=== PATIENT | female | born 1995 | race Caucasian/White ===

== ENCOUNTER 2021-01-22 10:42 | Emergency (ER) | payer OTHER, SELFPAY ==
[2021-01-22 10:55] VITALS: BP 135/88; PULSE 81; RESP 18; TEMP 36.5; O2SAT 98
--- NOTE | 2021-01-22 11:08 | ED.URI ---
HPI - URI/Sore Throat General Chief Complaint: Upper Respiratory Infection Stated Complaint: Cough/Fever/Sore Throat Time Seen by Provider: 01/22/21 10:44 Source: patient Mode of arrival: ambulatory Limitations: no limitations History of Present Illness HPI Narrative: 25-year-old female presents to [facility] with complaints of 10-day history of cough, congestion and runny nose. Patient reports that her symptoms worsen 2 days ago when she started with chills, fever, body aches and sore throat. Patient reports that she has not had a fever in the past 48 hours. Patient has received one of her 2 Covid shots. Patient does not influenza vaccine. Patient denies sick contacts. Patient denies recent travel. MD elicited complaint: cough, sore throat, rhinorrhea, nasal congestion and sinus pain Onset (ago): day(s) (10) Consistency: progressively worsening Able to tolerate fluids by mouth: Yes Associated symptoms: fever, chills and cough Related Data Home Medications Medication Instructions Recorded Confirmed escitalopram oxalate 10 mg PO DAILY 01/22/21 01/22/21 norgestrel-ethinyl estradiol 1 tablet PO DAILY 01/22/21 01/22/21 [Low-Ogestrel (28)] Allergies Allergy/AdvReac Type Severity Reaction Status Date / Time amoxicillin Allergy Unknown Other Verified 01/22/21 10:56 clarithromycin Allergy Unknown Other Verified 01/22/21 10:56 AMOXICILLIN TRIHYDRATE Allergy Unknown A CHILD Uncoded 01/29/18 13:02 POTASSIUM CLAVULANATE Allergy Unknown A CHILD Uncoded 01/29/18 13:02 Review of Systems Constitutional: Constitutional: Reports chills, Denies fatigue, Reports fever(s) and Denies weakness ENT: Denies dysphagia, Denies dizziness, Denies epistaxis and Reports sore throat Cardiovascular: Cardiovascular: Denies chest pain, Denies rapid heart rate, Denies radiating jaw, neck or arm pain and Denies slow heart rate Respiratory: Respiratory: Denies chest congestion, Reports cough and Denies dyspnea Gastrointestinal: Gastrointestinal: Denies abdominal pain, Denies diarrhea, Denies nausea and Denies vomiting Integumentary/Breasts: Skin/Breast: Denies rash PMFSH Past Medical History Medical History (Updated 01/22/21 @ 11:40 by Temitope Esparza APRN) Cholecystectomy planned Tonsillectomy planned Family History Family History Mother Diabetes mellitus Grandparent Diabetes mellitus Hypertension Family history of malignant neoplasm Family history of kidney stones Family history of malignant neoplasm of brain Family history of malignant neoplasm of breast in first degree relative Family history of malignant neoplasm of breast Social History Social History (Updated 01/22/21 @ 11:11 by Temitope Esparza APRN) Smoking status: Never smoker Alcohol intake: current Substance use: current Substance use type: marijuana Comments At time of signature, I agree with nursing past medical, surgical, social and family history. There is no relevant family history pertinent to the presenting complaint. Exam Const: General: healthy appearing and no acute distress Orientation/consciousness: patient oriented x3 HENMT: Head: normal to inspection Ears: external ears normal, TM's normal bilaterally and EAC's normal General nose exam: Normal external nose present Face and sinus: normal facial exam and sinuses nontender Mouth: Yes moist mucous membranes and Yes dry mucous membranes Throat: uvula midline Other: mild erythema noted to posterior pharynx Eyes: Pupils: Equal, round and reactive pupils present Neck: Neck: normal visual inspection Resp: Effort & Inspection: normal respiratory effort, not labored and not tachypneic Auscultation: clear to auscultation bilaterally Cardio: Rate: regular rate Rhythm: regular rhythm Skin: General skin exam: normal color Rashes: no rashes Neuro: General: patient oriented x3, moves all extremities and no meningeal signs Psy
== END 2021-01-22 11:44 | disposition home or self-care (01) ==
PROVIDERS: Emergency Provider Nurse Practitioner Family
DX: J11.1 Influenza due to unidentified influenza virus with other respiratory manifestations (principal); Z20.822 Contact with and (suspected) exposure to COVID-19
CPT/HCPCS: 87081; 87426; 87804; 87880; 99213; C9803; G0463

== ENCOUNTER 2023-06-18 17:28 | Emergency (ER) | payer OTHER, SELFPAY ==
--- NOTE | 2023-06-18 17:57 | PC.NURSE ---
called pt for triage at 2345 with no answer
== END 2023-06-18 17:57 | disposition left against medical advice (07) ==
DX: Z53.21 Procedure and treatment not carried out due to patient leaving prior to being seen by health care provider (principal)
CPT/HCPCS: 99199

== ENCOUNTER 2023-06-19 10:04 | Emergency (ER) | payer OTHER, SELFPAY ==
[2023-06-19] VITALS (13 sets, daily range): BP systolic 130–151; BP diastolic 78–82; PULSE 58–80; RESP 12–30; TEMP 37.6; O2SAT 100
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
--- NOTE | 2023-06-19 10:45 | ECG_ITS ---
SEE SCANNED COPY FOR CONFIRMED REPORT MTDD
[2023-06-19 10:58] LABS: Basophils Percent Auto 0.4 % (0.2-1.2); Eosinophils Absolute Auto 0.1 K/mm3 (0-0.3); Eosinophils Percent Auto 1.2 % (0-4.4); Hematocrit 40.4 % (37.0-47.0); Hemoglobin 13.7 g/dL (12.0-15.0); Immature Granulocyte Absolute 0.02 K/mm3 (0.00-0.031); Immature Granulocyte Percent A 0.3 % (0-0.5); Lymphocytes Absolute Auto 1.84 K/mm3 (0.9-3.2); Lymphocytes Percent Auto 26.7 % (18.3-44.2); Mean Corpuscular HGB Conc 33.9 g/dl (32-36); Mean Corpuscular Hemoglobin 29.8 pg (26-34); Mean Corpuscular Volume 87.8 fl (80-100); Mean Platelet Volume 9.1 fl (7.4-10.4); Monocytes Absolute Auto 0.4 K/mm3 (0.1-0.6); Monocytes Percent Auto 5.8 % (2.6-8.5); Neutrophils Absolute Auto 4.5 K/mm3 (1.3-6.7); Neutrophils Percent Auto 65.6 % (45.5-73.1); Platelet Count Result 272 k/mm3 (150-375); Red Cell Distribution Width 12.1 % (11.5-14.5); White Blood Count 6.9 K/mm3 (4.5-10.0)
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
[2023-06-19 11:13] LABS: Add Urine Microscopic? YES; Appearance Urine Turbid (Clear); Bacteria Urine 4+ /hpf; Bilirubin Urine Negative (Negative); Blood Urine Negative (Negative); Color Urine Dark Yellow (Yellow); Glucose Urine UA Negative (Negative); Ketones Urine Trace mg/dL (Negative); Leukocyte Esterase Ur Trace LEU/UL (Negative); Need Manual Microscopic Reviewed; Nitrate Urine Negative (Negative); Protein Urine 1+ mg/dL (Negative); Specific Grav Ur 1.036 (1.001-1.035); Squamous Epithelial Cell Urine Moderate /hpf (Few); WBC Urine 51-100 /hpf (0-3); pH Urine 5.5 (5.0-9.0)
[2023-06-19] MEDS: CYCLOBENZAPRINE HCL 5 MG TABLET PO (11:15)
[2023-06-19] MEDS: ACETAMINOPHEN 500 MG TABLET 1000 MG PO (11:15)
[2023-06-19 11:19] LABS: Troponin I < 0.012 ng/mL (0.000-0.034)
[2023-06-19 11:50] LABS: Estimated CRCL calculation 113 ml/min; Estimated Glomerular Filt Rate > 60
[2023-06-19 12:35] LABS: INR 1.1; Prothrombin Time 14.5 Seconds (11.1-14.7)
[2023-06-19 12:50] LABS: Alanine Aminotransferase 23 U/L (6-35); Albumin Level 4.6 g/dL (3.5-5.1); Alkaline Phosphatase 58 U/L (38-126); Anion Gap 5 mmol/L (4-12); Aspartate Amino Transferase 29 U/L (14-36); Bilirubin,Total 1.2 mg/dL (0.2-1.3); Blood Urea Nitrogen 13 mg/dL (7-17); Calcium 9.3 mg/dL (8.4-10.2); Carbon Dioxide 24 mmol/L (22-30); Chloride 108 mmol/L (98-107); Estimated CRCL calculation 113 ml/min; Estimated Glomerular Filt Rate > 60; Glucose 97 mg/dL (65-110); Potassium 3.7 mmol/L (3.4-5.0); Sodium 137 mmol/L (137-145)
== END 2023-06-19 12:49 | disposition home or self-care (01) ==
PROVIDERS: Emergency Provider Physician Assistant
DX: S16.1XXA Strain of muscle, fascia and tendon at neck level, initial encounter (principal); S20.212A Contusion of left front wall of thorax, initial encounter; N30.01 Acute cystitis with hematuria; V49.40XA Driver injured in collision with unspecified motor vehicles in traffic accident, initial encounter; R00.1 Bradycardia, unspecified
CPT/HCPCS: 36415; 70450; 71260; 72125; 72129; 72132; 73030; 73130; 74177; 80053; 81001; 81025; 84484; 85025; 85610; 85730; 87086; 93005; 99284; A9270; Q9967

== ENCOUNTER 2023-12-22 17:14 | Emergency (ER) | payer SELFPAY ==
--- NOTE | ~2023-12-22 | US_ITS ---
EXAMINATION: US OB <= 14 weeks fetus DATE: 12/22/2023 19:36 HUMAN SERVICE COORDINATOR INDICATION: Vaginal bleeding COMPARISON: 11/11/2023 TECHNIQUE: Real-time transabdominal obstetric ultrasound. FINDINGS: 1 para 0 Estimated date of delivery by last menstrual period is 07/02/2024. The uterus measures 10.7 x 6.9 x 9.6 cm. A gestational sac is identified within the uterus, to the right of midline. A pole is identified, with a crown-rump length that measures 6.5 cm, corresponding to an approx imate gestational age of 12 weeks and 6 days. cardiac activity is identified at a rate of 161 bpm. Despite prolonged interrogation, neither ovary was visualized. Estimated date of delivery by ultrasound is 06/29/2024. No subchorionic hemorrhage. No free fluid within the uterus IMPRESSION: Single intrauterine gestation with an approximate gestational age of 12 weeks and 6 days, with cardiac activity identified. Reviewed, dictated and finalized at location A. N SERVICE COORDINATOR IMPRESSION: Single intrauterine gestation with an approximate gestational age of 12 weeks a nd 6 days, with cardiac activity identified.
[2023-12-22 17:24] VITALS: BP 151/77; PULSE 73; RESP 16; TEMP 36.6; O2SAT 100
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
[2023-12-22 18:05] LABS: Basophils Percent Auto 0.3 % (0.2-1.2); Eosinophils Absolute Auto 0.1 K/mm3 (0-0.3); Hematocrit 34.5 % (37.0-47.0); Hemoglobin 12.4 g/dL (12.0-15.0); Immature Granulocyte Absolute 0.02 K/mm3 (0.00-0.031); Immature Granulocyte Percent A 0.3 % (0-0.5); Lymphocytes Absolute Auto 1.81 K/mm3 (0.9-3.2); Lymphocytes Percent Auto 30.3 % (18.3-44.2); Mean Corpuscular HGB Conc 35.9 g/dl (32-36); Mean Corpuscular Hemoglobin 30.6 pg (26-34); Mean Corpuscular Volume 85.2 fl (80-100); Mean Platelet Volume 8.3 fl (7.4-10.4); Monocytes Absolute Auto 0.3 K/mm3 (0.1-0.6); Monocytes Percent Auto 4.7 % (2.6-8.5); Neutrophils Absolute Auto 3.8 K/mm3 (1.3-6.7); Neutrophils Percent Auto 63.4 % (45.5-73.1); Platelet Count Result 228 k/mm3 (150-375); Red Blood Count 4.05 M/mm3 (4.2-5.4); Red Cell Distribution Width 12.5 % (11.5-14.5)
[2023-12-22 18:15] LABS: Alanine Aminotransferase 21 U/L (6-35); Albumin Level 3.9 g/dL (3.5-5.1); Alkaline Phosphatase 55 U/L (38-126); Anion Gap 6 mmol/L (4-12); Aspartate Amino Transferase 26 U/L (14-36); Bilirubin,Total 0.4 mg/dL (0.2-1.3); Blood Urea Nitrogen 9 mg/dL (7-17); Calcium 8.8 mg/dL (8.4-10.2); Carbon Dioxide 25 mmol/L (22-30); Chloride 104 mmol/L (98-107); Estimated CRCL calculation 152 ml/min; Estimated Glomerular Filt Rate > 60; Glucose 100 mg/dL (65-110); Potassium 3.3 mmol/L (3.4-5.0); Sodium 135 mmol/L (137-145)
[2023-12-22 18:21] LABS: Partial Thromboplastin Time 30.1 Seconds (22.3-36.8); Prothrombin Time 13.2 Seconds (11.1-14.7)
[2023-12-22 18:46] LABS: Atypical Lymphocytes Present; Platelet Estimate Adequate (Adequate); Schistocytes None Seen
[2023-12-22 20:17] VITALS: BP 113/58; PULSE 78; RESP 14; TEMP 36.6; O2SAT 100
== END 2023-12-22 20:18 | disposition home or self-care (01) ==
PROVIDERS: Physician Assistant; Emergency Provider Emergency Medicine
DX: O20.0 Threatened abortion (principal); Z3A.12 12 weeks gestation of pregnancy
CPT/HCPCS: 36415; 76801; 80053; 84702; 85025; 85461; 85610; 85730; 86850; 86900; 86901; 99284

== ENCOUNTER 2024-06-27 06:08 | Inpatient (IN) | payer OTHER, SELFPAY ==
[2024-06-27] VITALS (138 sets, daily range): BP systolic 87–156; BP diastolic 46–111; PULSE 29–211; RESP 16–20; TEMP 36.4–36.8; O2SAT 84–100; BMI 35.2
--- OUTSIDE RECORDS SUMMARY | 2024-06-27 06:12 | XMS_ITS | Clinical Summary ---
Author Organization [facility] Address [address] [place] [address] Care Team Providers Care Postal Delivery Officer Name Role Phone Unavailable Primary Care Provider Unavailabl e Source Comments [facility],non-owned Affiliates and Associated Physician Practices is amultiple site organization consisting of ambulatory clinics and hospital sitesin [place], [place], [place] and [place]. This disclosure is being madepursuant to the Care Everywhere program and may not contain all information available regarding this patient. Last updated 17.[facility] Allergies Active Allergy Reactions Criticality Noted Date Comments Cephalexin Rash Medium 04/26/2021 Sulfamethoxazole W-Trimethoprim Rash Medium 04/09 Medications * Be aware that medications may not be up to date on this document. Alwaysverify current medications with the patient. No known medications Social History Tobacco Use Types Packs/Day Years Used Date Smoking Tobacco: Never Smokeless Tobacco: Never Tobacco Cessation:Counseling Given: Yes Comments No Sex and Gender Information Value Date Recorded Sex Assigned at Not on file Legal Sex Female 12:09 PM [employer] Gender Identity Not on file Sexual Orientation Not on file Last Filed Vital Signs Vital Sign Reading Time Taken Comments Blood Pressure 116/74 04/26/2021 11:35 AM CDT Pulse 70 04/26/2021 11:35 AM CDT Temperature - - Respiratory Rate - - Oxygen Saturation 98% 04/26/2021 11:35 AM CDT Inhaled Oxygen Concentration - - Weight 90.7 kg (200 lb) 04/26/2021 11:35 AM CDT Height 167.6 cm (5' 6 ) 04/26/2021 11:35 AM CDT Body Mass Index 32.28 04/26/2021 11:35 AM CDT Plan of Treatment Health Maintenance Due Date Last Done Comments HIV SCREENING 2012 HEPATITIS C SCREENING 04/30/2015 DTAP/TDAP/TD VACCINES (1 - Tdap) 2016 HEPATITIS B VACCINE (1 of 3 - 19+ 3-dose series) 2016 COVID-19 VACCINE (2 - 2023-2 5 season) 2023 10/10/2020 DEPRESSION SCREENING 02/10/2024 INFLUENZA VACCINE (Season Ended) 2024 ZOSTER VACCINE (1 of 2) 05/05/2047 HIB VACCINE Aged Out No longer eligi ble based on patient's age to complete this topic HPV VACCINE Aged Out No longer eligi ble based on patient's age to complete this topic MENINGOCOCCAL (Group B) VACC INE SHARED DECISION-MAKING Aged Out No longer eligibl e based on patient's age to complete this topic MENINGOCOCCAL GROUPS A/C/Y/W VACCINE Aged Out No longer eligible b ased on patient's age to complete this topic PNEUMOCOCCAL VACCINE Aged Out No long er eligible based on patient's age to complete this topic Insurance AETNA AETNA
--- OUTSIDE RECORDS SUMMARY | 2024-06-27 06:12 | XMS_ITS | Data Portability ---
Author Organization [facility] Address [address] [place] [address] [place] [address] Assessment Encounter Date Assessment Date Assessment LastModified by Organization Details LastModified Time 06/08/2024 06/08/2024 Patient is ___weeks . Discussed plan. Not available 06/08/2024 17:18:11 06/16/2024 06/16/2024 Patient is _37__weeks . Discussed plan. [email or web address] Not available 06/16/2024 10:47:55 06/22/2024 06/22/2024 Patient is ___weeks . Discussed plan. Not available 06/22/2024 17:41:20 Plan of Treatment Reminders Order Date Submit Date Provider Last Modified By Organization Details Last Modified Time Details Appointments INDUCTION 2024 06:30A Yaz RAMIREZ MD Not available Not available Not available Lab None recorded. Referral None recorded. Procedures None recorded. Surgeries None recorded. Imaging US, obstetric , follow-up 2024 025 [email or web address] [place], [address], [place], [address], 06/08/2024 22:24:55 Medication Orders None recorded. Patient TargetsNo targets recorded. Patient InstructionsNo instructions recorded. Reason for Referral None Reported. Results Created Date Observation Date Name Description Value Unit Range Abnormal Flag Note LastModifiedBy Organization Detail LastModifiedTime 06/09/19 25 06/08/2024 CULTU RE: GROUP B STREP SCREE N, REFLE X SUSCE PTIBI LITY result report SEE RESULT S BELOW Test: Cultu re: Group B Strep , Refle x Susce ptibi lity ([facility]/ [facility] ) Speci men Sourc e: Vagin a/Rec liza Speci men Type: Vagin al/Re ctal Speci men Date: 2024 1744 Resul t Date: 025 1408 Resul t Statu s: Final resul t Abnor mal: No Resul ting Lab: [facility] [address] [facility] [address] Tel: CULTU RE ----- ----- ----- --- No Group B strep isola horace at 2 days (marco ctive broth enhan cemen t) Not Available [facility] (Lab) [address], [place], [address], 06/11/2024 15:11:20 05/13/19 25 05/12/2024 US, obste tric, follo w-up No observ ation record ed. [email or web address] [place] [address] [address], [place], [address], 05/12/2024 12:13:46 05/13/19 25 05/12/2024 US, obste tric, follo w-up No observ ation record ed. [email or web address] [address], [place], [address], 05/12/2024 21:24:35 06/09/19 25 06/08/2024 US, obste tric, follo w-up No observ ation record ed. [email or web address] [address], [place], [address], 06/08/2024 18:24:09 06/09/19 25 06/08/2024 US, obste tric, follo w-up No observ ation record ed. [email or web address] [address], [place], [address], 06/08/2024 22:11:58 Result Notes None recorded. Problems Name Problem SNOMED Code Status Onset Date Resolution Date Notes Provider Name and Address Organization Details Recorded Time 25175988 Active 2023 Josy Jalen croft, [facility] 4 14:55:47 Disorder of placenta 008609019 Active bilobed Declan Ramirez MD [address], [place], [address], [facility] 5 18:41:38 Problem Notes None recorded. Procedures Surgical History Date Name Laterality Status Provider Name and Address Organization Details Recorded Time 03/12/19 24 Date of Last Pap Smear completed [facility] 11/10/2023 11:49:57 02/09/19 19 Cholecystectomy completed [facility] 11/10/2023 11:52:29 02/09/19 04 tonsilectomy/adenoi ds completed [facility] 11/10/2023 11:52:41 Imaging Results Imaging Date Name Status LastModified by Organiz ation Details LastModified Time 05/12/2024 US, obstetric, follow-up completed edson [place] [address], [place], [address], 05/12/2024 12:13:46 05/12/2024 US, obstetric, follow-up completed [email or web address], [place], [address], 05/12/2024 21:24:35 06/08/2024 US, obstetric, follow-up completed liborio [place] [address], [place], [address], 06/08/2024 18:24:09 06/08/2024 US, obstetric, follow-up completed [email or web address], [place], [address], 06/08/2024 22:11:58 Procedure Notes None recorded. Medical Equipment None Reported. Allergies Allergen ID Allergen Name Allergen Category Reaction Reaction Severity Criticality Documentation Date Start Date Code Code System Note Provider Name and Address Organization Details Recorded Time 76966 Augmentin medicatio n rash Not available Not available 11/10/2023 90480 2 RxNorm [facility] 4 11:49:01 Medications Name Sig Start Date Stop Date Status Note LastModified by Organization Details LastModified Time clindamycin HCl 300 mg capsule TAKE 1 CAPSULE BY MOUTH EVERY DAY 11/09 completed Not Available Not Available Not Available ondansetron HCl 4 mg tablet TAKE 1 TABLET BY MOUTH EVERY 4 TO 6 HOURS NEEDED active Not Available Not Available No t Available cephalexin 500 mg capsule TAKE 1 CAPSULE BY MOUTH EVERY 6 HOURS FOR 7 DAYS 11/09 completed Not Available Not Available Not Available sertraline 50 mg tablet TAKE 1 TABLET BY MOUTH EVERY DAY active Not Available Not Available No t Available cyclobenzapr ine 5 mg tablet TAKE 1 TABLET BY MOUTH THREE TIMES A DAY NEEDED FOR MUSCLE SPASM 11/09 completed Not Available Not Available Not Available active Not Available Not Avai lable Not Available Vitals Date Recorded Body height Body mass index (BMI) Body weight Systolic blood pressure Diastolic blood pressure Provider Name and Address Organization Details Last Updated DateTime 06/08/2024 167.64 cm 34.9 kg/m2 15713.95 g 126 mm[Hg] 80 mm[Hg] Josy Rao [facility] 5 17:18:46 Date Recorded Body height Body mass index (BMI) Body weight Systolic blood pressure Diastolic blood pressure Provider Name and Address Organization Details Last Updated DateTime 06/16/2024 167.64 cm 34.7 kg/m2 07454.36 g 131 mm[Hg] 81 mm[Hg] Angela Llamas [facility] 5 10:12:57 Date Recorded Body height Body mass index (BMI) Body weight Systolic blood pressure Diastolic blood pressure Provider Name and Address Organization Details Last Updated DateTime 06/22/2024 167.64 cm 35.3 kg/m2 15715.73 g 140 mm[Hg] 83 mm[Hg] Josy Jalen [facility] 17:42:39 Social History Question Answer Notes LastModified by Organizat ion Details LastModified Time Tobacco Smoking Status Never Smoker Angela Farhad croft, [facility] 06/16/2024 10:14:58 If You Are , What Was Your Level Of Alcohol Consumption Prior To ? Occasional [email or web address] Information not available 06/16/2024 How Many Years Have You Consumed Alcohol? 5 [email or web address] Information not available 06/16/2024 Are You Blind Or Do You Have Difficulty Seeing? No [email or web address] Information n ot available 11/10/2023 What Is Your Level Of Caffeine Consumption? None Information not available 06/16/2024 How Much Tobacco Do You Chew? None [email or web address] Information not available 11/10/2023 In The 14 Days Before Symptom Onset, Have You Had Close Contact With A Laboratory-confirm ed COVID-19 While That Case Was Ill? No [email or web address] Information n ot available 11/10/2023 In The 14 Days Before Symptom Onset, Have You Had Close Contact With A Person Who Is Under Investigation For COVID-19 While That Person Was Ill? No Information not available 11/10/2023 Have You Been To An Area Known To Be High Risk For COVID-19? No [email or web address] Information not available 11/10/2023 Are You Deaf Or Do You Have Serious Difficulty Hearing? No Information not available 11/10/2023 What Type Of Diet Are You Following? REGULAR [email or web address] Information n ot available 11/10/2023 What Is The Highest Grade Or Level Of School You Have Completed Or The Highest Degree You Have Received? GC70899-1 [email or web address] Information not available 11/10/2023 Are There Any Guns Present In Your Home? No [email or web address] Information not available 11/10/2023 Do You Use Protection During Sex? No [email or web address] Information not available 11/10/2023 Do You Use Your Seat Belt Or Car Seat Routinely? Yes [email or web address] Information not available 11/10/2023 Do You Have Smoke And Carbon Monoxide Detectors In Your Home? Yes [email or web address] Information not available 11/10/2023 How Much Tobacco Do You Smoke? No Information not available 11/10/2023 Do You Use Sunscreen Routinely? No [email or web address] Information not available 11/10/2023 Have You Used IV Drugs? No [email or web address] Information not available 11/10/2023 Do You Have Difficulty Walking Or Climbing Stairs? No [email or web address] Information not available 06/16/2024 Sex: Unknown Functional Status Question Answer Note LastModified by Organizat ion Details LastModified Time Do you use any illicit or recreational drugs? Yes [email or web address] Information not available 11/10/2023 What is your level of alcohol consumption? None [email or web address] Information not available 11/10/2023 Are you able to walk? YESWOREST [email or web address] Information not available 11/10/2023 Are you able to care for yourself? 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 No [email or web address] Information not available 06/16/2024 What is your exercise level? Moderate [email or web address] Information not available 11/10/2023 Mental Status Question Answer Note LastModified by Organization D etails LastModified Time Do you feel stressed (tense, restless, nervous, or anxious, or unable to sleep at night)? [id number] Information not available 06/16/2024 Family History Relationship Description Onset Age of this Age Resolved Age Notes LastModified by Organization Details LastModified Time Mother Diabetes mellitus [email or web address] Not available 2023 11:51:42 Maternal Grandfather Diabetes mellitus [email or web address] Not available 2023 11:51:42 Maternal Grandfather Neoplasm of brain [email or web address] Not available 06/09 16:42:47 Paternal Grandfather Malignant neoplasm of lung [email or web address] Not available 2023 11:52:13 Medical History Condition Response Allergies (Food, seasonal, environmental ) N Other N Drug/Latex Allergies/Reactions N Blood Transfusion N Breast Cancer N Dermatologic Disorders N Lung Disease N Defects or Inherited Disease N Breast Problem N Gestational Diabetes N Hematologic disorders N Anesthesia Complications N History of STI N Deep Vein Thrombosis N Polycystic ovary syndrome N Anxiety Disorder Y Autoimmune disease N Arthritis N Polyps N Infertility N Acid Reflux (GERD) N History of abnormal pap N Cancer N Varicosities N Stroke N Neurologic/Epilepsy N Endometriosis N High Cholesterol N Fibromyalgia N Headaches N Kidney Disease N Heart Problems N Thyroid Problems N Kidney or Bladder Problems N GI Problems N Eating Disorder N Anemia N Art (IVF or FET) N Psychiatric Illness N Ovarian Cancer N Diabetes N Pulmonary (TB, Asthma) N Hepatitis/Liver Disease N No Past Medical History N Eczema N Urinary Tract Infection N Abuse/Domestic Violence N Asthma N Trauma/Violence N Depression/ depression Y Heart Disease N Pre-Eclampsia N Hypertension N Osteoporosis N Thrombophilias N Gynecological History Statement/Question Response Abnormal Pap N Date of Last Mammogram Flow Moderate Date of LMP 09/08/2023 N On BCP's at Conception? N STIs/STDs N Was last menstrual period normal N HPV Vaccine N Duration of Flow (days) 7 Current Control Method Are cycles usually normal N Date of Last Colonoscopy Frequency of Cycle (Q days) 30 Sexually Active? Y Menses Monthly Y Date of DEXA bone scan Age of first menstrual cycle 16 Date of Last Pap Smear 03/12/2023 Sexual Problems? N LMP Approximate N Obstetrics History GPAL:G 1 P 0 0 0 0 Type Value Living 0 Total 1 Past Encounters Encounter ID Performer Location Encounter Start Date Encounter Closed Date Diagnosis/Indication Diagnosis SNOMED-CT Code Diagnosis ICD10 Code Diagnosis Note [id number] Declan Ramirez MD [place] [address] [address] 11/10/2023 10:36:48 11/10/2023 11:43:19 Uterine size for dates discrepancy 814508340 O26.841 Z3A.01 [id number] Declan Ramirez MD [place] [address] [address] 11/10/2023 10:38:35 11/10/2023 12:24:54 Amenorrhea 21851910 N91.2 this patient is a 28-year-ol d female who presents for amenorrhea . She is a positive test. Ultrasound revealed a 1st trimester gestation. Patient has no complaints . We talked about early care. Talked about genetic screening. We talked about her ultrasound results. We talked about the 12 week ultrasound that has genetic screening components . She was given recommenda tions on exercise, diet, over-the-c ounter medication s. We reviewed her obstetric history. We reviewed her medical history. We reviewed her social history. She will begin routine care at her next visit. [id number] Declan Ramirez MD [place] [address] [address] 11/30/2023 14:21:44 11/30/2023 14:49:23 [id number] Declan Ramirez MD [place] [address],[facility] [place] [address] 12/03/2023 09:49:26 12/03/2023 11:14:18 Amenorrhea 56678849 N91.2 this patient is a 28-year-ol d female who presents for amenorrhea . She is a positive test. Ultrasound revealed a 1st trimester gestation. Patient has no complaints . We talked about early care. Talked about genetic screening. We talked about her ultrasound results. We talked about the 12 week ultrasound that has genetic screening components . She was given recommenda tions on exercise, diet, over-the-c ounter medication s. We reviewed her obstetric history. We reviewed her medical history. We reviewed her social history. She will begin routine care at her next visit. [id number] MD Jaswinder Guerrero [address] [address] 12/21/2023 13:46:07 12/21/2023 14:42:52 screening 364661401 Z36.82 Z3A.12 [id number] Declan Ramirez MD [place] [address] [address] 12/21/2023 13:48:04 12/21/2023 15:11:43 Routine care 590695975 Z34.91 [id number] Declan Ramirez MD [place] [address],[place] [address] 12/23/2023 17:01:20 12/24/2023 06:49:56 Threatened miscarriage 78631175 O20.0 Z3A.12 [id number] MD Jaswinder Guerrero [address],[place] [address] 01/18/2024 10:16:44 01/18/2024 11:34:16 Routine care 396380266 Z34.91 [id number] MD Jaswinder Guerrero [address],[place] [address] 02/18/2024 16:13:41 02/18/2024 17:48:13 screening for malformation 389565055 Z36.3 Z3A.20 [id number] MD Jaswinder Guerrero [address],[place] [address] 02/18/2024 16:13:52 02/19/2024 05:17:53 Routine care 949975859 Z34.91 [id number] MD Jaswinder Guerrero [address],[place] [address] 03/16/2024 15:43:17 03/16/2024 16:58:32 Placental condition affecting management of mother 428885781 O43.102 Z3A.24 [id number] MD Jaswinder Guerrero [address],[place] [address] 03/16/2024 15:44:09 03/16/2024 17:46:17 Routine care 858002103 Z34.91 [id number] MD Jaswinder Guerrero [address],[place] [address] 04/14/2024 09:46:50 04/14/2024 10:32:01 Placental condition affecting management of mother 114196813 O43.103 Z3A.28 [id number] MD Jaswinder Guerrero [address],[place] [address] 04/14/2024 09:47:13 04/14/2024 11:19:40 Routine care 860471710 Z34.91 [id number] MD Jaswinder Guerrero [address],[place] [address] 04/28/2024 10:18:54 04/28/2024 11:25:57 Routine care 793784715 Z34.91 [id number] MD Jaswinder Guerrero [address],[place] [address] 05/12/2024 09:22:10 05/12/2024 10:02:16 Placental condition affecting management of mother 796573995 O43.103 Z3A.32 [id number] MD Jaswinder Guerrero [address],[place] [address] 05/12/2024 09:22:26 05/12/2024 10:35:06 Routine care 382715299 Z34.91 [id number] MD Jaswinder Guerrero [address],[place] [address] 05/26/2024 16:34:33 05/26/2024 17:44:37 Third trimester 39349826 Z34.03 [id number] MD Jaswinder Guerrero [address],[place] [address] 06/08/2024 16:12:45 06/08/2024 16:55:26 Bilobate placenta 1240159526 O43.193 Z3A.36 [id number] MD Jaswinder Guerrero [address] [address] 06/08/2024 16:13:05 06/08/2024 16:52:54 [id number] MD Jaswinder Guerrero [address] [address] 06/08/2024 16:58:12 06/09/2024 09:40:33 Third trimester 81537104 Z34.03 [id number] Bita Tillman, [facility] [address] [address] 06/16/2024 09:46:27 06/16/2024 10:50:22 Gestation period, 37 weeks 56793145 Z3A.37 [id number] Declan Ramirez MD [place] [address] [address] 06/22/2024 16:42:40 06/23/2024 06:01:36 Third trimester 35144251 Z34.03 Health Concerns Section Related Observation LastModified by Organization Detai ls LastModified Time None Recorded Concern Status LastModified by Organization Details LastModified Time None Recorded Advance Directives Directive None Recorded Payers Encounter Date Sequence Insurance Name Policy Number Policy Gonzales Covered Member ID Gonzales Member ID Guarantor Name 06/08/2024 1 [facility] ON OR AFTER 08/09/20 (MEDICAID REPLACEMENT - HMO) Shauna Cervellone [id number] Karan Ramso 06/08/2024 1 [facility] ON OR AFTER 08/09/20 (MEDICAID REPLACEMENT - HMO) Shauna Cervellone [id number] Karan Ramos 06/08/2024 1 [facility] ON OR AFTER 08/09/20 (MEDICAID REPLACEMENT - HMO) Shauna Cervellone [id number] Karan Ramos 06/16/2024 1 [facility] ON OR AFTER 08/09/20 (MEDICAID REPLACEMENT - HMO) Shauna Cervellone [id number] Karan Ramos 06/22/2024 1 [facility] ON OR AFTER 08/09/20 (MEDICAID REPLACEMENT - HMO) Shauna Cervellone [id number] Karan Ramos OBGyn Episode Ob Episode Information Episode Created Date Number of Fetuses Patient Bloodtype Patient rh Status Prepregnancy Weight lbs Domestic Partner Domestic Partner Phone Father Name Crm Analyst Status 12/21/19 24 1 A Positive OPEN Fetus Data First Name Last Name Admitted to NICU Weight (g) Sex Living Outcome Pediatric Complications Fetus ID Race Codes Race Delivery Type [id number] Problems Problem Notes Problem Name Start Date End Date Resolution Snomed Code Not e Disorder of placenta 896780073 bilobed Dada Calculation Initial Dada Date Initial Exam Date Initial Exam Provider Initial Ultrasound Date Last Menstrual Period Date Ultra Sound Weeks Gestation 12/21/2023 11/30/2023 09/08/2023 9 Eighteen To Twenty Week Dada Update Ultra Sound Date Fundal Height At Umbil Quickening Date Ultra Sound Latest Weeks Gestation Final Dada Confirmed By Final Dada Confirmed Date Final Dada Date Ultra Sound Latest Days Gestation 0 [email or web address] 12/21/2023 07/03/19 25 0 Pre- Flowsheet Flowsheet Date 12/21/2023 Gunn Score Blood Edema Fundus Height Fundus Units Glucose Ketones Leukocytes Nitrite Labor Signs Protein Cervic Dilation Cervic Effacement Cervic Station Type Weight in lbs Pre/Post Dialysis Refused Weight 178.127259540129 BP Diastolic BP Location Tested BP Systolic BP Type 75 L arm 119 sitting Fetus Heart Rate Present A 145 Fetus Movement A No Comments this patient is a 28 year-ol d primiparous female at 12 weeks' gestation who presents for initial care. She has a history of term vaginal births. Her medical, surgical, obstetric history is unremarkable. She is vaccinated. She was given precautions recommendations for . We talked about vaccines in . Talked [email or web address] care in detail. She is having genetic testing. She had a normal 12 week ultrasound. To begin routine care. Flowsheet Date 12/23/2023 Gunn Score Blood Edema Fundus Height Fundus Units Glucose Ketones Leukocytes Nitrite Labor Signs Protein Cervic Dilation Cervic Effacement Cervic Station Type Weight in lbs Pre/Post Dialysis Refused BP Diastolic BP Location Tested BP Systolic BP Type Fetus Heart Rate Present Fetus Movement Comments Flowsheet Date 01/18/2024 Gunn Score Blood Edema Fundus Height Fundus Units Glucose Ketones Leukocytes Nitrite Labor Signs Protein Cervic Dilation Cervic Effacement Cervic Station Type Weight in lbs Pre/Post Dialysis Refused 181.775446146092 BP Diastolic BP Location Tested BP Systolic BP Type 81 L arm 120 sitting Fetus Heart Rate Present A 145 Fetus Movement A Yes Comments no complaints, no problems, routine care, no contractions, no vaginal bleeding, no loss of fluid, no cramping Flowsheet Date 02/18/2024 Gunn Score Blood Edema Fundus Height Fundus Units Glucose Ketones Leukocytes Nitrite Labor Signs Protein Cervic Dilation Cervic Effacement Cervic Station Type Weight in lbs Pre/Post Dialysis Refused BP Diastolic BP Location Tested BP Systolic BP Type Fetus Heart Rate Present Fetus Movement Comments Flowsheet Date 02/18/2024 Gunn Score Blood Edema Fundus Height Fundus Units Glucose Ketones Leukocytes Nitrite Labor Signs Protein Cervic Dilation Cervic Effacement Cervic Station Type Weight in lbs Pre/Post Dialysis Refused 194.040699802984 BP Diastolic BP Location Tested BP Systolic BP Type 70 L arm 104 sitting Fetus Heart Rate Present A 144 Fetus Movement A Yes Comments no complaints, no problems, routine care, no contractions, no vaginal bleeding, no loss of fluid, no cramping Flowsheet Date 03/16/2024 Gunn Score Blood Edema Fundus Height Fundus Units Glucose Ketones Leukocytes Nitrite Labor Signs Protein Cervic Dilation Cervic Effacement Cervic Station Type Weight in lbs Pre/Post Dialysis Refused BP Diastolic BP Location Tested BP Systolic BP Type Fetus Heart Rate Present Fetus Movement Comments Flowsheet Date 03/16/2024 Gunn Score Blood Edema Fundus Height Fundus Units Glucose Ketones Leukocytes Nitrite Labor Signs Protein Cervic Dilation Cervic Effacement Cervic Station Type Weight in lbs Pre/Post Dialysis Refused First 201.393667214268 BP Diastolic BP Location Tested BP Systolic BP Type 81 L arm 130 sitting Fetus Heart Rate Present A 145 Fetus Movement A Yes Comments no complaints, no problems, routine care, no contractions, no vaginal bleeding, no loss of fluid, no cramping Flowsheet Date 04/14/2024 Gunn Score Blood Edema Fundus Height Fundus Units Glucose Ketones Leukocytes Nitrite Labor Signs Protein Cervic Dilation Cervic Effacement Cervic Station Type Weight in lbs Pre/Post Dialysis Refused BP Diastolic BP Location Tested BP Systolic BP Type Fetus Heart Rate Present Fetus Movement Comments Flowsheet Date 04/14/2024 Gunn Score Blood [id number]|2024-06-27 08:46:48|2024-06-27 08:46:48|[id number]||||"History and Physical Update Update Date/Time: 06/27/24 08:46 29-year-old primipara at 39 weeks gestation presents for elective induction. Artificial rupture membranes was performed - clear fluid. 250/-3. Reassuring status. Active management of labor: Pitocin, AROM History and Physical has been reviewed, including an updated exam of the patient. There are NO changes in the patient's condition. Risks, benefits, and alternatives have been discussed and questions answered. Patient agrees to proceed with procedure."
--- OUTSIDE RECORDS SUMMARY | 2024-06-27 06:12 | XMS_ITS | Continuity of Care Document ---
Author Organization [facility] Address [address] [place] [address] Phone Care Team Providers Care Oncology Transplant Network Manager Name Role Phone Karan Mason MD Unavailable Unavailable Allergies, Adverse Reactions, Alerts Substance Reaction Status Criticality clarithromycin Rash Active No Informatio n Sulfa (Sulfonamide Antibiotics) Hives Active No Information POTASSIUM CLAVULANATE Rash Active No Inf ormation AMOXICILLIN TRIHYDRATE Rash Active No In formation Medications Medication Instructions Dosage Effective Dates (start - stop) Status Comments fluticasone 50 mcg/actuation Nasal [place], Susp spray 2 spray by intranasal route every day in each nostril 100 MCG - Active Advance Directives Directive Yes / No Effective Date File Name No Information Encounters Encounter Description Practice Location Reason(s) For Visit Diagnoses Date Provider Providers Copied on Encounter [facility], [address], [place], [place], [id number] , [place] tel: [phone] [facility] Allergic rhinitis due to pollenUnspecified sinusitis (chronic)INTRINSIC ASTHMA, UNSPECIFIED 3 Marlon Russo. [address] [address], [place], [place], [id number] , [place]. tel: [phone] Referring Provider: Lion Enriquez, [address] [place] [address] [address], [place], [address] . tel:[phone] Family History Family Member Type Diagnosis Age At Onset Mother Problem (finding) Lupus erythematosus Father Problem (finding) Allergies Mother Problem (finding) Allergies Sister Problem (finding) Urticaria Mother Problem (finding) asthma Payers Payer name Insurance type Covered libertarian ID Dion lindsay(s) [facility] [id number] Social History Type Description Quantity Date Captured Comments Alcohol Use Details Unknown Caffeine Use Details Unknown Tobacco Use Status No Information Smoking Status No Information Sex Female Vital Signs Date / Time: Height Weight BMI Pulse Rate Blood Pressure Temperature Respiratory Rate Body Surface Area Head Circumference Head Circ. Percentile Wt./Constantino. Percentile BMI percentile Pulse Ox Inhaled Ox 2:42 PM 64.75 in 163.00 lbs 27.3 3 kg/m eter (2) 59 /min 97/64 mm[Hg] 93 Chief Complaint And Reason For Visit No Information Reason For Referral Reason For Referral No Information History Of Present Illness Encounter Date Complaint History Of Prese nt Illness No Information Functional Status Date Functional Assessmen t No Information Instructions Date Instruction Additional Infor mation No Information Assessments Type Assessment Date No Information Patient Care Teams Name Effective Dates (start - stop) Status Members No Information
--- NOTE | 2024-06-27 07:12 | LDADM ---
This patient, Shauna Vizcaino, was admitted to Labor/Delivery/Recovery 105 on 06/27/24 at 06:08. Plans for labor, pain management and were discussed with patient. Patient/family oriented to hospital policies and general routines including ID bracelet, bed and alarms, visiting hours, pain management, procedures, bathroom and other care routines, personal items, smoking policy, room service/diet and guest tray routines, infant security routines, and visiting hours. Patient/Family are encouraged to report perceived risks to care and to ask questions if they do not understand what they are told or what they should do. See [facility]BI[facility] for further documentation.
[2024-06-27 07:29] LABS: Basophils Percent Auto 0.3 % (0.2-1.2); Eosinophils Absolute Auto 0.1 K/mm3 (0-0.3); Eosinophils Percent Auto 0.8 % (0-4.4); Hematocrit 34.3 % (37.0-47.0); Hemoglobin 11.3 g/dL (12.0-15.0); Immature Granulocyte Absolute 0.03 K/mm3 (0.00-0.031); Immature Granulocyte Percent A 0.3 % (0-0.5); Lymphocytes Absolute Auto 1.64 K/mm3 (0.9-3.2); Mean Corpuscular HGB Conc 32.9 g/dl (32-36); Mean Platelet Volume 10.4 fl (7.4-10.4); Monocytes Absolute Auto 0.5 K/mm3 (0.1-0.6); Monocytes Percent Auto 5.7 % (2.6-8.5); Neutrophils Absolute Auto 6.4 K/mm3 (1.3-6.7); Neutrophils Percent Auto 73.9 % (45.5-73.1); Platelet Count Result 224 k/mm3 (150-375); Red Blood Count 3.77 M/mm3 (4.2-5.4); White Blood Count 8.6 K/mm3 (4.5-10.0)
[2024-06-27 08:20] LABS: HIV 1/2 Ab P24 Ag Result Negative (Negative)
[2024-06-27] MEDS: OXYTOCIN 30 UNITS/NS 500 ML 30 UNITS/500 ML BAG 6 UNITS IV CONT (08:39)
[2024-06-27] MEDS: LACTATED RINGERS 1,000 ML 125 ML IV CONT ×2 (08:40→22:25)
[2024-06-27 08:41] LABS: Syphilis IgG/IgM Antibody Negative (Negative)
--- NOTE | 2024-06-27 08:46 | P.HPUP_ITS ---
History and Physical Update Update Date/Time: 06/27/24 08:46 29-year-old primipara at 39 weeks gestation presents for elective induction. Artificial rupture membranes was performed - clear fluid. 3. Reassuring status. Active management of labor: Pitocin, AROM History and Physical has been reviewed, including an updated exam of the patient. There are NO changes in the patient's condition. Risks, benefits, and alternatives have been discussed and questions answered. Patient agrees to proceed with procedure.
--- NOTE | 2024-06-27 17:16 | WPDANESEPP ---
Anes - Eval Pre Procedure Procedure: labor pain management Date/Time: 06/27/24 17:16 Surgeon: Neda Preop Diagnosis: pain during labor Pre Op Diagnosis: IOL Patient Data Age: 29 Gender: F Height: 1.68 m Weight: 99 kg Last Vital Signs Pulse 72 06/27/24 17:00 BP 115/72 06/27/24 17:00 O2 Del Method Room Air 06/27/24 06:50 Allergies Allergy/AdvReac Type Severity Reaction Status Date / Time amoxicillin Allergy Unknown Other Verified 06/24/24 13:22 clarithromycin Allergy Unknown Other Verified 06/24/24 13:22 AMOXICILLIN TRIHYDRATE Allergy Unknown A CHILD Uncoded 06/24/24 13:22 POTASSIUM CLAVULANATE Allergy Unknown A CHILD Uncoded 06/24/24 13:22 Home Medications Medication Instructions Recorded Confirmed Type vit no.95-ferrous 1 tablet PO DAILY 06/24/24 06/24/24 History fumarate 28 mg-folic acid 800 mcg tablet () sertraline 50 mg tablet 50 mg PO DAILY 06/24/24 06/24/24 History Laboratory Tests 06/27/24 06/27/24 07:21 08:25 WBC 8.6 K/mm3 (4.5-10.0) RBC 3.77 L M/mm3 (4.2-5.4) Hgb 11.3 L g/dL (12.0-15.0) Hct 34.3 L % (37.0-47.0) MCV 91.0 fl (80-100) MCH 30.0 pg (26-34) MCHC 32.9 g/dl (32-36) RDW 13.0 % (11.5-14.5) Plt Count 224 k/mm3 (150-375) MPV 10.4 fl (7.4-10.4) Immature Gran % (Auto) 0.3 % (0-0.5) Neut % (Auto) 73.9 H % (45.5-73.1) Lymph % (Auto) 19.0 % (18.3-44.2) [place] % (Auto) 5.7 % (2.6-8.5) Eos % (Auto) 0.8 % (0-4.4) Baso % (Auto) 0.3 % (0.2-1.2) Lymph # (Auto) 1.64 K/mm3 (0.9-3.2) [place] # (Auto) 0.5 K/mm3 (0.1-0.6) Eos # (Auto) 0.1 K/mm3 (0-0.3) Baso # (Auto) 0.0 K/mm3 (0.0-0.1) Abs Immat Gran (auto) 0.03 K/mm3 (0.00-0.031) Absolute Neuts (auto) 6.4 K/mm3 (1.3-6.7) Absolute Nucleated RBC 0.000 K/mm3 (0.0-0.012) Nucleated RBC % 0.0 % (0.0-0.2) Syphilis IgG/IgM Ab Negative (Negative) HIV 1&2 Ab/P24 Ag 4thGn Negative (Negative) Blood Type A Positive Antibody Screen Negative Patient hx anesthesia problems: none Family hx anesthesia problems: none Results Review: All pre-operative results and documents have been reviewed as part of the pre-operative evaluation. [facility] Past Medical History Medical History Tonsillectomy planned Cholecystectomy planned Family History Family History Mother Diabetes mellitus Grandparent Family history of kidney stones Diabetes mellitus Family history of malignant neoplasm Family history of malignant neoplasm of breast Family history of malignant neoplasm of breast in first degree relative Family history of malignant neoplasm of brain Hypertension Other Lupus anticoagulant complicating in second trimester, antepartum Social History Social History Smoking status: Never smoker Second hand tobacco smoke exposure: No Alcohol intake: current Substance use: never Substance use type: marijuana Do You Feel Safe in your Home?: Yes Lack of Transportation: No Lack of Food: Never True Current Housing: I Have Housing Concerned About Future Housing: No Difficulty Paying Gas/Electric Bills: No Difficulty Paying for Meds: No Currently Unemployed: No Education: Trade/Vocational Certificate Difficulty w/ Childcare or Family Care: No Spiritual care concerns: No Exam Day of Procedure 06/27/24 17:16
[2024-06-27] MEDS: SERTRALINE HCL 50 MG TABLET PO (21:06)
[2024-06-27] MEDS: ONDANSETRON INJ 4 MG/2 ML VIAL IV PUSH (21:25)
[2024-06-28] VITALS (150 sets, daily range): BP systolic 88–127; BP diastolic 46–89; PULSE 51–127; RESP 18; TEMP 36.4–37.1; O2SAT 82–100
[2024-06-28] MEDS: PHENYLEPHRINE 1,000 MCG/10 ML SYRINGE 100 MCG IV PUSH ×3 (00:17→01:22)
[2024-06-28] MEDS: FAMOTIDINE 20 MG/2 ML VIAL IV PUSH (02:37)
[2024-06-28] MEDS: ceFAZolin 2 GM/D5W 50 ML 2 GM/50 ML BAG IVPB (02:40)
[2024-06-28] MEDS: LACTATED RINGERS 1,000 ML 125 ML IV CONT (05:22)
[2024-06-28] MEDS: OXYTOCIN 30 UNITS/NS 500 ML 30 UNITS/500 ML BAG 999 UNITS IV CONT (07:38)
--- NOTE | 2024-06-28 07:42 | PM.OBPRVD ---
OB - Vaginal Delivery Note Procedure Delivery date: 06/28/24 Induction method: AROM and Per Pitocin Protocol Delivery monitor: External FHT and Internal Uterine Route of delivery: Episiotomy description: None Laceration Description: Vaginal (2nd degr) Delivery repair: vicryl Quantitative Blood Loss (ml): 250 Anesthesia type: Epidural Disposition: Floor Complications: No immediate complications
[2024-06-28] MEDS: ACETAMINOPHEN 325 MG TABLET 650 MG PO ×2 (09:00→15:01)
[2024-06-28] MEDS: oxyCODONE HCL (*CRX) 5 MG TAB IR 10 MG PO ×2 (09:57→18:59)
[2024-06-28] MEDS: POLYSACCHARIDE IRON COMPLEX 150 MG CAPSULE PO (09:58)
[2024-06-28] MEDS: MULTIVIT/MIN/PREN/FOL AC/IRON TABLET 1 TAB PO (09:58)
--- NOTE | 2024-06-28 10:05 | OBPPTRN ---
Patient transferred to post room #283 via wheelchair. Support person present. Oriented to unit, room, information board, rooming in, admission packet and security measures. Patient verbalizes understanding.
[2024-06-28] MEDS: IBUPROFEN 600 MG TABLET PO ×2 (13:42→18:59)
[2024-06-28] MEDS: DOCUSATE SODIUM 100 MG CAPSULE PO (17:10)
[2024-06-29] MEDS: IBUPROFEN 600 MG TABLET PO ×2 (03:16→14:50)
[2024-06-29 04:00] LABS: Hematocrit 27.9 % (37.0-47.0); Hemoglobin 9.4 g/dL (12.0-15.0)
[2024-06-29 07:25] VITALS: BP 119/68; PULSE 64; RESP 16; TEMP 36.5; O2SAT 100
--- NOTE | 2024-06-29 07:42 | P.PNOB_ITS ---
OB - PN: Subj Subjective Date/time seen: 06/29/24 07:42 Interval history: pp day 1 bottle feeding desires d/c home no complaints OB - PN: Obj Data Labs 06/29/24 03:12 Labs: Laboratory Results - last 24 hr 06/29/24 03:12 Hgb 9.4 L Hct 27.9 L OB - PN A/P Plan day: 1 Plan: routine care and discharge home Time Spent With Patient Time: Total time spent is greater than 50% in coordination of care (as documented) at patient's floor/unit and/or counseling patient: Review of Systems 2 Review of Systems: All systems reviewed & are unremarkable except as noted in HPI and below Exam 2 Const: General: cooperative, healthy appearing and comfortable Chest: Chest palpation & inspection: normal inspection of the chest Resp: Effort & Inspection: normal respiratory effort Cardio: Rate: regular rate
--- NOTE | 2024-06-29 07:43 | PM.OBDSVD ---
DS: Admitting Diagnosis Discharge Date 06/29/24 Admitting Diagnosis IOL DS: Discharge Diagnosis Discharge Diagnosis (1) Vaginal delivery: Code(s): O80 - Encounter for full-term uncomplicated delivery Status: Acute OB - DS: Summary OB Procedures : None OB Procedures Intrapartum: Spontaneous Vag Delivery OB Procedures: : None Peripartum Data Laceration Description: Vaginal (2nd degr) Episiotomy description: None Time Spent with Patient Time attestation: Total time spent providing and/or coordinating discharge services: DS: Data Data Completed and Pending Labs on day of discharge: Labs from last 24 hours 06/29/24 03:12 Hgb 9.4 L Hct 27.9 L Discharge Plan Discharge Attending physician on discharge: Declan Red Discharging Clinician: Bita Tillman Patient Disposition: Home Activity: pelvic rest Diet: regular Patient Instructions: Antibiotic Form Patient Language: Congolese Stand Alone Forms: General Discharge Information Follow-up/Referrals: Declan Red MD [Physician] - 4 Weeks Discharge Medications: Continued sertraline 50 mg tablet 50 mg PO DAILY PNV cmb#95-ferrous fumarate-FA [] 28 mg iron- 800 mcg tablet 1 tablet PO DAILY Date of admission: 06/27/24 06:08 Primary Care Provider: UNKNOWN,DOCTOR Admitting Provider: Declan Red Attending physician on admission: Declan Red Condition: Stable
[2024-06-29] MEDS: ACETAMINOPHEN 325 MG TABLET 650 MG PO ×2 (08:15→17:13)
[2024-06-29] MEDS: POLYSACCHARIDE IRON COMPLEX 150 MG CAPSULE PO ×2 (08:16→17:13)
[2024-06-29] MEDS: DOCUSATE SODIUM 100 MG CAPSULE PO ×2 (08:16→17:13)
[2024-06-30 08:20] VITALS: BP 126/73; PULSE 73; RESP 18; TEMP 36.7; O2SAT 99
== END 2024-06-29 18:30 | disposition home or self-care (01) | DRG 560 ==
LOC: ANHLDR 06:11 → ANHOB2 06-28 10:10
PROVIDERS: Admitting Provider Obstetrics & Gynecology; Visit Provider Obstetrics & Gynecology
DX: O42.92 Full-term premature rupture of membranes, unspecified as to length of time between rupture and onset of labor (principal); O70.1 Second degree perineal laceration during delivery; Z3A.39 39 weeks gestation of pregnancy; Z37.0 Single live birth
CPT/HCPCS: 36415; 85014; 85018; 85025; 86593; 86703; 86850; 86900; 86901; A9270; G0432; J0690; J2371; J2405; J2590; J2795; J7120

== ENCOUNTER 2024-09-21 01:06 | Day surgery (SDC) | payer OTHER, SELFPAY ==
[2024-09-20 09:30] VITALS: BMI 32.8
--- NOTE | 2024-09-20 09:36 | PC.NURSE ---
Report to the Outpatient Waiting Room, entrance under the green pavilion located off [facility], at time __0600am on date _09/21/24 . Planned Procedure Time: __0730am .? Time changes happen often and if your time is changed the preop area will call you the afternoon before. - You and your visitor will be asked to self-screen and do not enter if you have any COVID symptoms. Please call surgeon if you need to reschedule. - A mask is optional within the hospital at this time. Patients may have clear liquids (water, carbonated beverages, clear teas, apple juice) until 3 hours prior to surgery with a maximum of 20 ounces. - No food from midnight until time of surgery and no smoking, or chewing tobacco (or any form of nicotine). No chewing gum, candy or mints. (04:30am) Take only the following medications with a SIP of water on the morning of surgery: NONE DO NOT STOP ANY OF YOUR OTHER PRESCRIPTION MEDICATIONS PRIOR TO SURGERY EXCEPT THE FOLLOWING Hold all vitamins and supplements for 3 days per anesthesiologist. Medications to discontinue per physician NONE Date to take last dose NONE Please no make-up, nail canadian, hairspray, perfume, deodorant, or body powder the day of surgery.? No jewelry (including any body piercings) or valuables the day of surgery, leave them at home.? Please take a shower or bath the night before, or the morning of, surgery with an antibacterial soap.?Gold Dial Wear comfortable, loose fitting clothing. - Jewelry must be removed prior to entering the operating room.? Rings and piercings that are not removed may be cut off. - The hospital will not accept responsibility for valuables.? - Please leave all valuables, including medications, at home the day of surgery. If you are going home after surgery, a licensed hi low truck driver must drive you home.? - NO public transportation without another adult if you receive anesthesia. - We recommend that an adult stay with you for 24 hours following discharge. - We also recommend that you do not drive, make important decision, drink alcoholic beverages, or take any drugs that were not prescribed by your health care provider for at least 24 hours after your discharge time. Follow any additional instructions given to you from your surgeon. Telephone instructions given to _Patient and asked if any additional questions and then verbalized understanding. Patient advised to call surgeon office or pre surgery nurse liaison [phone] if any additional questions.
[2024-09-21] VITALS (9 sets, daily range): BP systolic 109–126; BP diastolic 58–78; PULSE 57–98; RESP 16–20; TEMP 36.6–36.7; O2SAT 98–100
--- OUTSIDE RECORDS SUMMARY | 2024-09-21 01:24 | XMS_ITS | Clinical Summary ---
Author Organization [facility] Address [address] [place] [address] Care Team Providers Care Industrial Electrical Technician Name Role Phone Unavailable Primary Care Provider Unavailabl e Source Comments [facility],non-owned Affiliates and Associated Physician Practices is amultiple site organization consisting of ambulatory clinics and hospital sitesin [place], [place], [place] and [place]. This disclosure is being madepursuant to the Care Everywhere program and may not contain all information available regarding this patient. 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
--- OUTSIDE RECORDS SUMMARY | 2024-09-21 01:24 | XMS_ITS | Continuity of Care Document ---
Author Organization [facility] Address [address] [place] [address] Phone Care Team Providers Care Foamite Mixer Name Role Phone Karan Mason MD Unavailable Unavailable Allergies, Adverse Reactions, Alerts Substance Reaction Status Criticality clarithromycin Rash Active No Informatio n Sulfa (Sulfonamide Antibiotics) Hives Active No Information POTASSIUM CLAVULANATE Rash Active No Inf ormation AMOXICILLIN TRIHYDRATE Rash Active No In formation Medications Medication Instructions Dosage Effective Dates (start - stop) Status Comments fluticasone 50 mcg/actuation Nasal [place], Susp spray 2 spray by intranasal route every day in each nostril 100 MCG - Active Advance Directives Directive Yes / No Effective Date File Name No Information Encounters Encounter Description Practice Location Reason(s) For Visit Diagnoses Date Provider Providers Copied on Encounter [facility], [address], [place], [place], [id number] , [place] tel: [phone] [place] [facility] Allergic rhinitis due to pollenUnspecified sinusitis (chronic)INTRINSIC ASTHMA, UNSPECIFIED 3 Marlon Russo. [address] [address], [place], [place], [id number] , [place]. tel: [phone] Referring Provider: Lion Enriquez, [address] [place] [address] [address], [place], [address] . tel:[phone] Family History Family Member Type Diagnosis Age At Onset Mother Problem (finding) asthma Sister Problem (finding) Urticaria Mother Problem (finding) Allergies Father Problem (finding) Allergies Mother Problem (finding) Lupus erythematosus Payers Payer name Insurance type Covered libertarian ID Dion lindsay(s) [facility] [id number] Social History Type Description Quantity Date Captured [...]
[2024-09-21] MEDS: ACETAMINOPHEN 500 MG TABLET 1000 MG PO (06:17)
[2024-09-21] MEDS: LACTATED RINGERS 1,000 ML 30 ML IV CONT ×2 (06:25→08:25)
[2024-09-21] MEDS: KETOROLAC 15 MG/ML VIAL (*BKC) IV PUSH (06:27)
[2024-09-21 07:03] LABS: BEDSIDEPREGUCG Negative (Negative)
--- NOTE | 2024-09-21 07:07 | P.PNAN_ITS ---
Anes - Initial Pre Proc Eval Procedure: Operation Date: 09/21/24 07:30 Proposed Procedures p Laparoscopic Bilateral Salpingectomy - Declan Red MD Date/Time: 09/21/24 07:07 Surgeon: Declan Red MD Pre Op Diagnosis: sterilization Patient Data Age: 29 Gender: F Height: 1.7 m Weight: 93.5 kg Last Vital Signs Temp 97.9 F 09/21/24 05:55 Pulse 59 L 09/21/24 05:55 Resp 18 09/21/24 05:55 BP 118/78 09/21/24 05:55 Pulse Ox 99 09/21/24 05:55 O2 Del Method Room Air 09/21/24 05:55 Allergies Allergy/AdvReac Type Severity Reaction Status Date / Time amoxicillin Allergy Unknown Other Verified 09/21/24 06:32 clarithromycin Allergy Unknown Other Verified 09/21/24 06:32 AMOXICILLIN TRIHYDRATE Allergy Unknown A CHILD Uncoded 09/21/24 06:32 POTASSIUM CLAVULANATE Allergy Unknown A CHILD Uncoded 09/21/24 06:32 Home Medications ?Medication ?Instructions ?Recorded ?Confirmed ?Type sertraline 50 mg tablet 50 mg PO DAILY 06/24/24 09/21/24 History Laboratory Tests 09/21/24 06:05 POC Urine HCG, Qual Negative (Negative) Patient hx anesthesia problems: none Family hx anesthesia problems: none Results Review: All pre-operative results and documents have been reviewed as part of the pre- operative evaluation. [facility] Past Medical History Medical History Tonsillectomy planned Cholecystectomy planned Family History Family History Mother Diabetes mellitus Grandparent Family history of kidney stones Diabetes mellitus Family history of malignant neoplasm Family history of malignant neoplasm of breast Family history of malignant neoplasm of breast in first degree relative Family history of malignant neoplasm of brain Hypertension Other Lupus anticoagulant complicating in second trimester, antepartum Social History Social History Smoking status: Never smoker Second hand tobacco smoke exposure: Yes Alcohol intake: never Substance use: current Substance use type: marijuana Other substance usage details: smoke nightly to sleep Do You Feel Safe in your Home?: Yes Lack of Transportation: No Lack of Food: Never True Current Housing: I Have Housing Concerned About Future Housing: No Difficulty Paying Gas/Electric Bills: No Difficulty Paying for Meds: No Currently Unemployed: No Education: Trade/Vocational Certificate Difficulty w/ Childcare or Family Care: No Living arrangements: with family Additional living arrangements comments: Sign other Spiritual care concerns: No Anes - Eval Final PreProcedure Day of Procedure 09/21/24 07:07 Patient weight: obese Lungs: normal air movement Airway: Mallampati scale class II Neurological: alert and oriented Last oral intake: >/= 8 hours ASA classification: II Emergent: no Anesthetic plan: proceed Anesthesia type and monitoring: general ETT and standard monitoring Results Review: All pre-operative results and documents have been reviewed as part of the pre- operative evaluation. BMi 32. 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 Informed Consent: The patient's anesthetic plan and its attendant risks and benefits were discussed with the patient/family/POA. Questions were solicited and answers provided to the satisfaction of the patient/family/POA.
--- NOTE | 2024-09-21 07:27 | PM.IMHP ---
H&P: [facility] History of Present Illness Date/Time: 09/21/24 07:27 Chief Complaint: Unwanted fertility Narrative: This patient is a 29-year-old female with unwanted fertility who presents for laparoscopic bilateral salpingectomy. She understands risks, benefits, and alternatives. She has completed informed consent process and is ready to proceed. The patient understands the details of the procedure. The procedure has been explained in detail. She understands the risks. She understands that injuries may occur that result in hospitalization, more surgery, and severe illness. She understands risk of hemorrhage and infection. She denies any chest pain or shortness of breath. She denies any nausea, vomiting, fever, chills. Review of Systems Review of Systems: All systems reviewed & are unremarkable except as noted in HPI and below Constitutional: Constitutional: Denies chills, Denies fatigue, Denies fever(s) and Denies weakness Eyes: Eyes: Denies blurry vision, Denies change in vision, Denies loss of peripheral vision, Denies loss of vision, Denies other visual disturbances and Denies eye pain ENT: Denies vertigo, Denies dizziness, Denies hearing loss, Denies mouth pain, Denies nasal obstruction, Denies neck mass and Denies neck pain Cardiovascular: Cardiovascular: Denies chest pain, Denies diaphoresis, Denies syncope, Denies leg edema and Denies dyspnea Respiratory: Respiratory: Denies chest congestion, Denies cough, Denies hemoptysis, Denies dyspnea and Denies wheezing Gastrointestinal: Gastrointestinal: Denies abdominal pain, Denies constipation, Denies diarrhea, Denies nausea and Denies vomiting Genitourinary: Genitourinary: Denies hematuria, Denies change in libido, Denies nocturia, Denies genital lesions, Denies flank pain and Denies urinary urgency Musculoskeletal: Musculoskeletal: Denies abnormal gait, Denies back pain, Denies myalgias, Denies arthralgias, Denies joint swelling, Denies muscle weakness and Denies neck pain Integumentary/Breasts: Skin/Breast: Denies swelling, Denies breast pain, Denies breast mass, Denies dry skin, Denies nipple discharge, Denies unusual bruising and Denies jaundice Neurologic: Denies Neuro-related abnormal movements, Denies Abnormal speech present, Denies abnormal gait, Denies behavioral changes, Denies confusion, Denies vertigo, Denies dizziness, Denies syncope, Denies loss of vision, Denies memory loss, Denies convulsions and Denies weakness Psychiatric: Psychiatric: Denies abnormal sleep pattern, Denies behavioral changes, Denies change in libido, Denies confusion, Denies depression, Denies anhedonia and Denies memory loss Endocrine: Endocrine: Reports no additional endocrine complaints, Denies change in libido and Denies fatigue Hematologic/Lymphatic: Hematologic/Lymphatic: Reports no additional hematologic/lymphatic complaints Allergic/Immunologic: Allergic/Immunologic: Reports no additional allergic/immunologic complaints and Denies wheezing PMFSH Past Medical History Medical History Tonsillectomy planned Cholecystectomy planned Family History Family History Mother Diabetes mellitus Grandparent Family history of kidney stones Diabetes mellitus Family history of malignant neoplasm Family history of malignant neoplasm of breast Family history of malignant neoplasm of breast in first degree relative Family history of malignant neoplasm of brain Hypertension Other Lupus anticoagulant complicating in second trimester, antepartum Social History Social History Smoking status: Never smoker Second hand tobacco smoke exposure: Yes Alcohol intake: never Substance use: current Substance use type: marijuana Other substance usage details: smoke nightly to sleep Do You Feel Safe in your Home?: Yes Lack of Transportation: No Lack of Food: Never True Current Housing: I Have Housing Concerned About Future Housing: No Difficulty Paying Gas/Electric Bills: No Difficulty Paying for Meds: No Currently Unemployed: No Education: Trade/Vocational Certificate Difficulty w/ Childcare or Family Care: No Living arrangements: with family Additional living arrangements comments: Sign other Spiritual care concerns: No Meds Home Medications and Allergies Home Medications ?Medication ?Instructions ?Recorded ?Confirmed ?Type sertraline 50 mg tablet 50 mg PO DAILY 06/24/24 09/21/24 History Allergies Allergy/AdvReac Type Severity Reaction Status Date / Time amoxicillin Allergy Unknown Other Verified 09/21/24 06:32 clarithromycin Allergy Unknown Other Verified 09/21/24 06:32 AMOXICILLIN TRIHYDRATE Allergy Unknown A CHILD Uncoded 09/21/24 06:32 POTASSIUM CLAVULANATE Allergy Unknown A CHILD Uncoded 09/21/24 06:32 Vital Signs Vital Signs - 24 hr 09/21/24 05:55 Temperature 97.9 F Pulse Rate 59 L Respiratory Rate 18 Blood Pressure 118/78 Pulse Oximetry 99 Oxygen Delivery Room Air Exam Const: General: cooperative, healthy appearing, comfortable and no acute distress Orientation/consciousness: oriented to person, oriented to place and oriented to time HENMT: Head: normal to inspection Ears: external ears normal Face/Nose/Sinus: Normal external nose present and normal facial exam Face and sinus: normal facial exam Eyes: General: appearance normal, both eyes and all related structures Neck: Neck: normal visual inspection, trachea midline and supple Resp: Auscultation: clear to auscultation bilaterally, no crackles, no rales, no rhonchi and no wheezes Cardio: Rate: regular rate Rhythm: regular rhythm Heart sounds: no click, no murmurs and no rubs GI: GI Palp: No abdominal tenderness, No Soft to palpation, No Tenderness to palpation present (GI) and No Palpable mass present Auscultation: normal bowel sounds Skin: General skin exam: normal color and no rashes or lesions noted Neuro: General: oriented to person, oriented to place and oriented to time Extrem: General: normal to inspection, no joint enlargement, no clubbing, cyanosis or edema, no pedal edema and no calf tenderness Psych: Appearance: grossly normal Mental Status: mental status grossly normal Speech and movement: Normal speech and movement present Assessment and Plan Assessment and plan (1) Unwanted fertility: Code(s): Z30.09 - Encounter for other general counseling and advice on contraception Status: Acute Plan This patient is a 29-year-old female with unwanted fertility who presents for laparoscopic bilateral salpingectomy. She understands risks, benefits, and alternatives. She has completed informed consent process and is ready to proceed.
--- NOTE | 2024-09-21 07:29 | WPDHPUPDATE1 ---
History and Physical Update Update Date/Time: 09/21/24 07:29 History and Physical has been reviewed, including an updated exam of the patient. There are NO changes in the patient's condition. Risks, benefits, and alternatives have been discussed and questions answered. Patient agrees to proceed with procedure.
--- NOTE | 2024-09-21 08:05 | S_PTH ---
PATIENT: Shauna Vizcaino LOC: [facility] U#:[id number] AGE/SX: 29/F ROOM: RE09/21/[address]: Declan Red MD : [id number] BED: DIS: 09/21/2024 SPEC #: [id number] RECD: 09/21/24 10:36 STATUS: KULWANT REQ #: [id number] MIGUEL: 09/21/24 08:[address]: Declan Red DEPT: 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
--- NOTE | 2024-09-21 08:13 | W.PM.PROC2 ---
Procedure Note - Detailed Date of Procedure 09/21/24 Pre-op Diagnosis sterilization Post-op Diagnosis Same Procedure Performed Laparoscopic bilateral salpingectomy Surgeon Declan Red MD Anesthesia General Indications Unwanted fertility Findings Normal pelvic anatomy Description of Procedure The patient was taken the operating room. She was prepped and draped in the dorsal lithotomy position after induction of general anesthesia. A 5 mm skin incision was made in the left upper quadrant of the abdominal skin. A 5 mm trocar was inserted the intra-abdominal cavity under direct visualization of the scope. Pneumoperitoneum was achieved. A 5 mm trocar was inserted in the left lower quadrant identical fashion. A 5 mm infraumbilical trocar was inserted in identical fashion as well. The bilateral fallopian tubes were removed. This was done by using a LigaSure cautery. The mesosalpinx adjacent to the tube was cauterized transected with LigaSure. This was initiated in the area the ovary and in a stepwise fashion moved medially to the area of the cornu of the uterus. Once there the fallopian tube was cauterized and transected. This was done in identical fashion on each side. The fallopian tubes were taken out through the left lower quadrant trocar site. The pneumoperitoneum was reduced. The trocars removed. The skin was closed with subcuticular 4 Monocryl and covered with Dermabond. She was taken to cover stable condition. Sponge lap and needle counts were correct x2. Estimated Blood Loss 5 Drains No Packing No Pathology Yes Complications No immediate complications Condition Stable Disposition PACU
[2024-09-21] MEDS: fentaNYL CITRATE INJ (*CRX) 100 MCG/2 ML VIAL 25 MCG IV PUSH ×2 (09:11→09:14)
[2024-09-21] MEDS: oxyCODONE HCL (*CRX) 5 MG TAB IR PO (09:45)
== END 2024-09-21 10:17 | disposition home or self-care (01) ==
PROVIDERS: Visit Provider Obstetrics & Gynecology
PROC: (CPT 49320; principal; 2024-09-21 07:30)
DX: Z30.2 Encounter for sterilization (principal); F12.90 Cannabis use, unspecified, uncomplicated; E66.9 Obesity, unspecified; Z68.32 Body mass index [BMI] 32.0-32.9, adult; Z80.3 Family history of malignant neoplasm of breast; Z80.8 Family history of malignant neoplasm of other organs or systems
CPT/HCPCS: 58661; 88302; A9270; J1100; J1885; J2003; J2250; J2270; J2405; J2704; J3010; J7030; J7120